=== PATIENT | female | born 1945 ===

== ENCOUNTER 2016-06-10 16:48 | Emergency (ER) | payer SELFPAY ==
[~2016-06-10] VITALS: Ht 165.1 cm; Wt 79.8 kg
[2016-06-10 16:52] VITALS: BP 131/78
== END 2016-06-10 18:31 | disposition home or self-care (01) ==
LOC: ER 16:51
DX: L03.116 Cellulitis of left lower limb (principal); E11.9 Type 2 diabetes mellitus without complications
CPT/HCPCS: 73610-TC; 93971-TC; A4606; Z7610